=== PATIENT | female | born 1955 | race African-American/Black ===

== ENCOUNTER 2017-02-21 11:17 | Inpatient (IN) | payer OTHER ==
[2017-02-21 14:38] VITALS: BMI 33.0
--- NOTE | 2017-02-21 15:41 | HP ---
COWS - Scale Resting Pulse: 0= [place] 80 or Below Restless Observation: 3= Extraneous Movement Pupil Size: 2= Moderately Dilated Bone or Joint Aches: 2= Severe Diffuse Aches Runny Nose/ Eye Tearin= Runny Nose/Eyes GI Upset > 30mins: 3= Vomiting/Diarrhea Tremor Observation: 2= Slight Tremor Visible Yawning Observation: 2= >3x During Session Anxiety or Irritability: 2=Irritable/Anxious Goose Flesh Skin: 0=Smooth Skin Admission ROS BHS - HPI Chief Complaint: i need help to stop using heroin and street methadone Allergies/Adverse Reactions: Allergies Allergy/AdvReac Type Severity Reaction Status Date / Time No Known Allergies Allergy Verified 12/11/15 16:49 History of Present Illness: this 62 years old female with heroin and street methadone,withdrawal symptom, last detox [facility] 12/11/15 to 12/16/15 hepatitis c arthritis both knees anxiety and depression asthma vertigo low back pain herniated disc longest period of sobriety 20 years - Ebola screening Have you traveled outside of the country in the last 21 days: No Have you had contact with anyone from an Ebola affected area: No Have you been sick,other than usual withdrawal symptoms: No - Review of Systems Constitutional: Chills, Diaphoresis, Loss of Appetite, Malaise, Night Sweats, Changes in sleep, Weakness EENT: reports: Tearing, Nose Congestion Respiratory: reports: No Symptoms reported, Other (asthma) Cardiac: reports: Palpitations GI: reports: Diarrhea, Nausea, Vomiting, Abdominal cramping : reports: No Symptoms Reported Musculoskeletal: reports: Back Pain, Joint Pain, Muscle Pain, Joint Stiffness Integumentary: reports: Dryness Neuro: reports: Headache, Tremors Endocrine: reports: No Symptoms Reported Hematology: reports: No Symptoms Reported Psychiatric: reports: Anxious, Depressed Patient History - Patient Medical History Hx Anemia: No Hx Asthma: Yes (ON ALBUTEROL INHALER) Hx Chronic Obstructive Pulmonary Disease (COPD): No Hx Cancer: No Hx Cardiac Disorders: No Hx Congestive Heart Failure: No Hx Hypertension: No Hx Hypercholesterolemia: No Hx Pacemaker: No HX Cerebrovascular Accident: No Hx Seizures: No Hx Dementia: No Hx Diabetes: No Hx Gastrointestinal Disorders: No Hx Liver Disease: No Hx Genitourinary Disorders: No Hx Sexually Transmitted Disorders: No Hx Renal Disease (ESRD): No Hx Thyroid Disease: No Hx Human Immunodeficiency Virus (HIV): No (2013 NEGATIVE) Hx Hepatitis C: Yes Hx Depression: Yes Hx Suicide Attempt: No Hx Bipolar Disorder: No Hx Schizophrenia: No Other Medical History: no suicidal,no homicidal - Patient Surgical History Past Surgical History: Yes Hx Neurologic Surgery: No Hx Cataract Extraction: No Hx Cardiac Surgery: No Hx Lung Surgery: No Hx Breast Surgery: No Hx Breast Biopsy: No Hx Abdominal Surgery: No Hx Appendectomy: No Hx Cholecystectomy: No Hx Genitourinary Surgery: No Hx Section: No Hx Orthopedic Surgery: Yes (RIGHT SHOULDER ,RIGHT KNEE ARTHROSCOPIC) Anesthesia Reaction: No - PPD History Previous Implant?: Yes Documented Results: Negative w/o proof Date: 12/13/15 PPD to be Administered?: Yes - Reproductive History Patient is a Female of Child Bearing Age (11 -55 yrs old): No Patient : No - Smoking Cessation Smoking history: Never smoked Have you smoked in the past 12 months: No Hx Chewing Tobacco Use: No Initiated information on smoking cessation: No - Substance & Tx. History Hx Alcohol Use: No Hx Substance Use: Yes Substance Use Type: Heroin Hx Substance Use Treatment: Yes ([facility] 12/11/15 ) Family Disease History - Family Disease History Family Disease History: Other: Father (ALCOHOL,) Admission Physical Exam BHS - Vital Signs Vital Signs: Vital Signs - 24 hr 02/21/17 14:36 Temperature 97.0 F L Pulse Rate 66 Respiratory 16 Rate Blood Pressure 119/70 - Physical General Appearance: Yes: Moderate Distress, Tremorous, Irritable, Sweating, Anxious HEENTM: Yes: Within Normal Limits, Normal ENT Inspection, NONI, Pharynx Normal Respiratory: Yes: Lungs Clear, Normal Breath Sounds, No Respiratory Distress Neck: Yes: Within Normal Limits, Supple, Trachea in good position Breast: Yes: Breast Exam Deferred Cardiology: Yes: Within Normal Limits, Regular Rhythm, Regular Rate, S1, S2 Abdominal: Yes: Normal Bowel Sounds, Non Tender, Flat, Soft Genitourinary: Yes: Within Normal Limits Back: Yes: Within Normal Limits, Normal Inspection, Muscle Spasm Musculoskeletal: Yes: Back pain, Joint Stiffness, Muscle Pain Extremities: Yes: Within Normal Limits, Normal Range of Motion, Tremors Neurological: Yes: stereotype caster II-XII NML intact, Alert, Motor Strength 5/5 Integumentary: Yes: Dry Lymphatic: Yes: Within Normal Limits - Diagnostic (1) Arthritis Current Visit: No Status: Acute (2) Asthma Current Visit: No Status: Acute (3) Hepatitis C Current Visit: No Status: Acute (4) Opioid dependence with withdrawal Current Visit: No Status: Acute (5) Vertigo Current Visit: Yes Status: Acute (6) Anxiety and depression Current Visit: Yes Status: Acute Cleared for Admission [facility] - Detox or Rehab [facility] Level of Care: Medically Managed Detox Regimen/Protocol: Methadone [facility] Breath Alcohol Content Breath Alcohol Content: 0 Urine Pregancy Test - Result Urine Test Results: Negative- NO Line Present Urine Drug Screen - Results Drug Screen Negative: No Urine Drug Screen Results: OPI-Opiates, BZO-Benzodiazepines, MTD-Methadone, OXY- Oxycodone
[2017-02-21] MEDS ORDERED: ACETAMINOPHEN 325 MG TABLET (FP) PO PRN (15:59)
[2017-02-21] MEDS ORDERED: P-EPHED 60MG/TRIPROLIDI 2.5MG TABLET PO PRN (15:59)
[2017-02-21] MEDS ORDERED: MAGNESIUM CITRATE 300 ML BOTTLE PO PRN (15:59)
[2017-02-21] MEDS ORDERED: guaiFENesin/D-METHORPHAN HB 10 ML UNIT-DOSE CUPS PO PRN (15:59)
[2017-02-21] MEDS ORDERED: MAG HYDROX/AL HYDROX/SIMETH 30 ML UNIT-DOSE CUP PO PRN (15:59)
[2017-02-21] MEDS ORDERED: MAGNESIUM HYDROX 2400MG/30ML ORAL SUSPENSION 30 ML CUP PO PRN (15:59)
[2017-02-21] MEDS ORDERED: LOPERAMIDE HCL 2 MG CAPSULE PO PRN (15:59)
[2017-02-21] MEDS ORDERED: IBUPROFEN 400 MG TABLET (FP) PO PRN (15:59)
[2017-02-21] MEDS ORDERED: MENTHOL/PHENOL 1 EACH UD MM PRN (15:59)
[2017-02-21] MEDS ORDERED: METHADONE HCL 10 MG TABLET (FOR DETOX USE ONLY) PO ONE ×3 (15:59→23:00)
[2017-02-21] MEDS ORDERED: hydrOXYzine PAMOATE 25 MG CAPSULE (FP) PO PRN (15:59)
[2017-02-21] MEDS ORDERED: ALBUTEROL SO4 6.7 GM HFA INHALER IH PRN (16:05)
[2017-02-21] MEDS: diazePAM 5 MG TABLET PO PRN (18:45)
[2017-02-21] MEDS: THIAMINE HCL 100 MG TABLET (FP) PO SCH (22:59)
[2017-02-21 23:22] LABS: URINE APPEARANCE CLEAR; URINE BILIRUBIN NEGATIVE (NEGATIVE); URINE BLOOD NEGATIVE (NEGATIVE); URINE COLOR YELLOW; URINE GLUCOSE (UA) NEGATIVE (NEGATIVE); URINE KETONE NEGATIVE (NEGATIVE); URINE LEUK ESTERASE NEGATIVE (NEGATIVE); URINE NITRITE NEGATIVE (NEGATIVE); URINE PROTEIN NEGATIVE (NEGATIVE); URINE UROBILINOGEN NEGATIVE E.U./dl (0.2-1.0)
[2017-02-22] MEDS: diphenhydrAMINE HCL 50 MG CAPSULE PO PRN ×2 (02:38→22:51)
[2017-02-22] MEDS ORDERED: METHADONE HCL 10 MG TABLET (FOR DETOX USE ONLY) PO ONE (10:00)
[2017-02-22] MEDS: PRENATAL VITAMINS W/ FOLIC ACID TABLET (FP) PO SCH (10:10)
[2017-02-22] MEDS: MECLIZINE HCL 12.5 MG TABLET PO PRN ×2 (10:10→15:15)
[2017-02-22 11:07] LABS: MCH 30.1 pg (25.7-33.7); MEAN CELL VOLUME 91.2 fl (80-96); MEAN PLT VOLUME 8.3 fl (7.5-11.1); PLATELET COUNT 125 K/MM3 (134-434); RDW 14.4 % (11.6-15.6); WHITE BLOOD COUNT 2.4 K/mm3 (4.0-10.0)
[2017-02-22 11:08] LABS: ALBUMIN 3.1 g/dl (3.4-5.0); ANION GAP 7 (8-16); CALCIUM 8.4 mg/dL (8.5-10.1); CO2 31 mmol/L (21-32); COCKROFT - GAULT 142.7065; CREATININE 0.6 mg/dL (0.55-1.02); GLUCOSE,RANDOM 88 mg/dL (74-106); SGOT/AST 55 U/L (15-37); SGPT/ALT 38 U/L (12-78)
[2017-02-22 11:09] LABS: ALK PHOS 131 U/L (45-117); BILIRUBIN,TOTAL 0.4 mg/dL (0.2-1.0); TOT PROT 6.4 g/dl (6.4-8.2)
--- NOTE | 2017-02-22 13:13 | PN ---
BHS COWS - Scale Resting Pulse: 0= [place] 80 or Below Sweatin=Flushed/Facial Moisture Restless Observation: 3= Extraneous Movement Pupil Size: 1= Pupils >than Normal Bone or Joint Aches: 2= Severe Diffuse Aches Runny Nose/ Eye Tearin= Runny Nose/Eyes GI Upset > 30mins: 3= Vomiting/Diarrhea Tremor Observation of Outstretched Hands: 2= Slight Tremor Visible Yawning Observation: 1= 1-2x During Session Anxiety or Irritability: 2=Irritable/Anxious Goose Flesh Skin: 0=Smooth Skin COWS Score: 18 BHS Progress Note (SOAP) Subjective: ALERT,IRRITABLE,ANXIOUS,INTERRUPTED SLEEP,TREMOR,PAIN IN THE BODY AND BACK Objective: 02/22/17 13:11 Vital Signs Temperature 98.1 F 02/22/17 11:08 Pulse Rate 67 02/22/17 11:08 Respiratory Rate 16 02/22/17 11:08 Blood Pressure 132/77 02/22/17 11:08 O2 Sat by Pulse Oximetry (%) EKG NSR Laboratory Last Values WBC 2.4 K/mm3 (4.0-10.0) L D 02/22/17 07:40 RBC 4.19 M/mm3 (3.60-5.2) 02/22/17 07:40 Hgb 12.6 GM/dL (10.7-15.3) 02/22/17 07:40 Hct 38.2 % (32.4-45.2) 02/22/17 07:40 MCV 91.2 fl (80-96) 02/22/17 07:40 MCHC 33.0 g/dl (32.0-36.0) 02/22/17 07:40 RDW 14.4 % (11.6-15.6) 02/22/17 07:40 Plt Count 125 K/MM3 (134-434) L D 02/22/17 07:40 MPV 8.3 fl (7.5-11.1) 02/22/17 07:40 Sodium 142 mmol/L (136-145) 02/22/17 07:40 Potassium 4.0 mmol/L (3.5-5.1) 02/22/17 07:40 Chloride 104 mmol/L (98-107) 02/22/17 07:40 Carbon Dioxide 31 mmol/L (21-32) 02/22/17 07:40 Anion Gap 7 (8-16) L 02/22/17 07:40 BUN 10 mg/dL (7-18) 02/22/17 07:40 Creatinine 0.6 mg/dL (0.55-1.02) D 02/22/17 07:40 Creat Clearance w eGFR > 60 (>60) 02/22/17 07:40 Random Glucose 88 mg/dL (74-106) D 02/22/17 07:40 Calcium 8.4 mg/dL (8.5-10.1) L 02/22/17 07:40 Total Bilirubin 0.4 mg/dL (0.2-1.0) 02/22/17 07:40 AST 55 U/L (15-37) H D 02/22/17 07:40 ALT 38 U/L (12-78) 02/22/17 07:40 Alkaline Phosphatase 131 U/L (45-117) H 02/22/17 07:40 Total Protein 6.4 g/dl (6.4-8.2) 02/22/17 07:40 Albumin 3.1 g/dl (3.4-5.0) L 02/22/17 07:40 Urine Color Yellow 02/21/17 21:22 Urine Appearance Clear 02/21/17 21:22 Urine pH 5.0 (5.0-8.0) 02/21/17 21:22 Ur Specific [place] 1.026 (1.001-1.035) 02/21/17 21:22 Urine Protein Negative (NEGATIVE) 02/21/17 21:22 Urine Glucose (UA) Negative (NEGATIVE) 02/21/17 21:22 Urine Ketones Negative (NEGATIVE) 02/21/17 21:22 Urine Blood Negative (NEGATIVE) 02/21/17 21:22 Urine Nitrite Negative (NEGATIVE) 02/21/17 21:22 Urine Bilirubin Negative (NEGATIVE) 02/21/17 21:22 Urine Urobilinogen Negative E.U./dl (0.2-1.0) 02/21/17 21:22 Ur Leukocyte Esterase Negative (NEGATIVE) 02/21/17 21:22 LABS PENDING Assessment: 02/22/17 13:12 WITHDRAWAL SYMPTOM Plan: CONTINUE DETOX,
--- NOTE | 2017-02-22 14:29 | CONSULT ---
[facility] Psychiatric Consult - Data Date of interview: 02/22/17 Admission source: [facility] Identifying data: Readmission to [facility] for this 60 y/o AA female seeking detox treatment, on ,for heroin dependence.Patient is single without children,domiciled,unemployed and supported on [facility] benefits. Substance Abuse History: - Smoking Cessation. Smoking history: Never smoked. Have you smoked in the past 12 months: No. Hx Chewing Tobacco Use: No. Initiated information on smoking cessation: No. - Substance & Tx. History. Hx Alcohol Use: No. Hx Substance Use: Yes. Substance Use Type: Heroin. Hx Substance Use Treatment: Yes ([facility] 12/11/15 ). Confirmed by patient. Medical History: Hepatitis C,arthritis of both knees,low back pain (herniated disk) and a history of vertigo. Psychiatric History: Remote history of one psychiatric hospitalization for suicidal ideation (patient does not recall location).Diagnosed with MDD but, apparently,the patient has stopped taking medications months ago (used to be on abilify and paxil).Confirmed by review of pharmacy claims.No OPD care for more than a year.Ms Daniels denies history of suicide attempts. Physical/Sexual Abuse/Trauma History: No history reported. Mental Status Exam - Mental Status Exam Alert and Oriented to: Time, Place, Person Cognitive Function: Good Patient Appearance: Well Groomed (covered with tattoos : arms and forearms) Mood: Hopeful, Euthymic Affect: Appropriate, Normal Range Patient Behavior: Fatigued, Appropriate, Cooperative Speech Pattern: Clear, Appropriate Voice Loudness: Normal Thought Process: Goal Oriented Thought Disorder: Not Present Hallucinations: Denies Suicidal Ideation: Denies Homicidal Ideation: Denies Insight/Judgement: Fair Sleep: Fair Appetite: Good Muscle strength/Tone: Normal Gait/Station: Other (walks with a limp) Psychiatric Findings - Problem List ([place] 1, 2,3) (1) Opioid dependence with withdrawal Current Visit: Yes Status: Acute (2) Substance induced mood disorder Current Visit: Yes Status: Acute (3) Arthritis Current Visit: Yes Status: Chronic (4) Vertigo Current Visit: Yes Status: Acute (5) Asthma Current Visit: Yes Status: Chronic (6) Hepatitis C Current Visit: Yes Status: Chronic - Initial Treatment Plan Initial Treatment Plan: Previous records are reviewed.Detoxification in progress.Observation.
[2017-02-22] MEDS: THIAMINE HCL 100 MG TABLET (FP) PO SCH (22:49)
[2017-02-23] MEDS: diazePAM 5 MG TABLET PO PRN ×2 (08:27→19:33)
[2017-02-23] MEDS ORDERED: METHADONE HCL 5 MG TABLET (FOR DETOX USE ONLY) PO ONE (10:00)
[2017-02-23] MEDS: PRENATAL VITAMINS W/ FOLIC ACID TABLET (FP) PO SCH (10:33)
[2017-02-23] MEDS: LIDOCAINE 5% TOPICAL PATCH TP SCH (10:34)
[2017-02-23] MEDS: MECLIZINE HCL 12.5 MG TABLET PO PRN ×2 (10:35→22:14)
--- NOTE | 2017-02-23 14:10 | PN ---
BHS COWS - Scale Resting Pulse: 0= [place] 80 or Below Sweatin= Chills/Flushing Restless Observation: 3= Extraneous Movement Pupil Size: 1= Pupils >than Normal Bone or Joint Aches: 2= Severe Diffuse Aches Runny Nose/ Eye Tearin= Runny Nose/Eyes GI Upset > 30mins: 2= Nausea/Diarrhea Tremor Observation of Outstretched Hands: 2= Slight Tremor Visible Yawning Observation: 1= 1-2x During Session Anxiety or Irritability: 2=Irritable/Anxious Goose Flesh Skin: 0=Smooth Skin COWS Score: 16 S Progress Note (SOAP) Subjective: ALERT,IRRITABLE,ANXIOUS,INTERRUPTED SLEEP,PAIN IN THE BODY AND BACK,PAIN IN BOTH KNEES Objective: 02/23/17 14:07 Vital Signs Temperature 98.1 F 02/23/17 10:26 Pulse Rate 68 02/23/17 10:26 Respiratory Rate 16 02/23/17 10:26 Blood Pressure 121/75 02/23/17 10:26 O2 Sat by Pulse Oximetry (%) 02/23/17 14:08 Laboratory Last Values WBC 2.4 K/mm3 (4.0-10.0) L D 02/22/17 07:40 RBC 4.19 M/mm3 (3.60-5.2) 02/22/17 07:40 Hgb 12.6 GM/dL (10.7-15.3) 02/22/17 07:40 Hct 38.2 % (32.4-45.2) 02/22/17 07:40 MCV 91.2 fl (80-96) 02/22/17 07:40 MCHC 33.0 g/dl (32.0-36.0) 02/22/17 07:40 RDW 14.4 % (11.6-15.6) 02/22/17 07:40 Plt Count 125 K/MM3 (134-434) L D 02/22/17 07:40 MPV 8.3 fl (7.5-11.1) 02/22/17 07:40 Sodium 142 mmol/L (136-145) 02/22/17 07:40 Potassium 4.0 mmol/L (3.5-5.1) 02/22/17 07:40 Chloride 104 mmol/L (98-107) 02/22/17 07:40 Carbon Dioxide 31 mmol/L (21-32) 02/22/17 07:40 Anion Gap 7 (8-16) L 02/22/17 07:40 BUN 10 mg/dL (7-18) 02/22/17 07:40 Creatinine 0.6 mg/dL (0.55-1.02) D 02/22/17 07:40 Creat Clearance w eGFR > 60 (>60) 02/22/17 07:40 Random Glucose 88 mg/dL (74-106) D 02/22/17 07:40 Calcium 8.4 mg/dL (8.5-10.1) L 02/22/17 07:40 Total Bilirubin 0.4 mg/dL (0.2-1.0) 02/22/17 07:40 AST 55 U/L (15-37) H D 02/22/17 07:40 ALT 38 U/L (12-78) 02/22/17 07:40 Alkaline Phosphatase 131 U/L (45-117) H 02/22/17 07:40 Total Protein 6.4 g/dl (6.4-8.2) 02/22/17 07:40 Albumin 3.1 g/dl (3.4-5.0) L 02/22/17 07:40 Urine Color Yellow 02/21/17 21:22 Urine Appearance Clear 02/21/17 21:22 Urine pH 5.0 (5.0-8.0) 02/21/17 21:22 Ur Specific [place] 1.026 (1.001-1.035) 02/21/17 21:22 Urine Protein Negative (NEGATIVE) 02/21/17 21:22 Urine Glucose (UA) Negative (NEGATIVE) 02/21/17 21:22 Urine Ketones Negative (NEGATIVE) 02/21/17 21:22 Urine Blood Negative (NEGATIVE) 02/21/17 21:22 Urine Nitrite Negative (NEGATIVE) 02/21/17 21:22 Urine Bilirubin Negative (NEGATIVE) 02/21/17 21:22 Urine Urobilinogen Negative E.U./dl (0.2-1.0) 02/21/17 21:22 Ur Leukocyte Esterase Negative (NEGATIVE) 02/21/17 21:22 RPR Titer Nonreactive (NONREACTIVE) 02/22/17 07:40 Assessment: 02/23/17 14:09 WITHDRAWAL SYMPTOM Plan: CONTINUE DETOX,LIDODERM PATCH BOTH KNEES
[2017-02-23] MEDS: THIAMINE HCL 100 MG TABLET (FP) PO SCH (22:13)
--- NOTE | 2017-02-24 00:14 | EKG ---
Test Reason : Blood Pressure : / mmHG Vent. Rate : 063 BPM Atrial Rate : 063 BPM P-R Int : 188 ms QRS Dur : 090 ms QT Int : 438 ms P-R-T Axes : 062 -24 036 degrees QTc Int : 448 ms NORMAL SINUS RHYTHM POSSIBLE LEFT ATRIAL ENLARGEMENT BORDERLINE ECG NO PREVIOUS ECGS AVAILABLE Confirmed by MESHA GALLARDO, DENAE ([id number]) on 02/24/2017 12:14:19 AM Referred By: Confirmed By:DENAE ZIMMER MD
[2017-02-24] MEDS: diazePAM 5 MG TABLET PO PRN ×2 (05:43→15:02)
[2017-02-24] MEDS ORDERED: METHADONE HCL 5 MG TABLET (FOR DETOX USE ONLY) PO ONE (10:00)
--- NOTE | 2017-02-24 10:19 | PN ---
BHS Progress Note (SOAP) Subjective: sweats agitation anxiety irritable interrupted sleep Objective: 02/24/17 10:18 Vital Signs Temperature 97.7 F 02/24/17 06:00 Pulse Rate 61 02/24/17 06:00 Respiratory Rate 18 02/24/17 06:00 Blood Pressure 132/89 02/24/17 06:00 O2 Sat by Pulse Oximetry (%) Laboratory Tests 02/21/17 02/22/17 02/22/17 21:22 07:40 07:40 WBC 2.4 L D RBC 4.19 Hgb 12.6 Hct 38.2 MCV 91.2 MCHC 33.0 RDW 14.4 Plt Count 125 L D MPV 8.3 Sodium 142 Potassium 4.0 Chloride 104 Carbon Dioxide 31 Anion Gap 7 L BUN 10 Creatinine 0.6 D Creat Clearance w eGFR > 60 Random Glucose 88 D Calcium 8.4 L Total Bilirubin 0.4 AST 55 H D ALT 38 Alkaline Phosphatase 131 H Total Protein 6.4 Albumin 3.1 L Urine Color Yellow Urine Appearance Clear Urine pH 5.0 Ur Specific [place] 1.026 Urine Protein Negative Urine Glucose (UA) Negative Urine Ketones Negative Urine Blood Negative Urine Nitrite Negative Urine Bilirubin Negative Urine Urobilinogen Negative Ur Leukocyte Esterase Negative RPR Titer 02/22/17 07:40 WBC RBC Hgb Hct MCV MCHC RDW Plt Count MPV Sodium Potassium Chloride Carbon Dioxide Anion Gap BUN Creatinine Creat Clearance w eGFR Random Glucose Calcium Total Bilirubin AST ALT Alkaline Phosphatase Total Protein Albumin Urine Color Urine Appearance Urine pH Ur Specific [place] Urine Protein Urine Glucose (UA) Urine Ketones Urine Blood Urine Nitrite Urine Bilirubin Urine Urobilinogen Ur Leukocyte Esterase RPR Titer Nonreactive awake/alert ambulating no acute distress Assessment: 02/24/17 10:19 withdrawal sx Plan: continue detox increase fluids
[2017-02-24] MEDS: PRENATAL VITAMINS W/ FOLIC ACID TABLET (FP) PO SCH (10:38)
[2017-02-24] MEDS: LIDOCAINE 5% TOPICAL PATCH TP SCH (10:39)
[2017-02-24] MEDS ORDERED: PARoxetine HCL 10 MG TABLET (FP) PO SCH (14:15)
--- NOTE | 2017-02-24 14:44 | PN ---
[id number]. Patient has endorsed criteria for depression. Used to be on paxil and abilify. Wants to get back on paroxetine. Met with Ms Daniels this morning.Good historian. She recalls good response to paroxetine in terms of improvement of energy level,mood,appetite and sleep. Patient states that the medication was well tolerated. Review of pharmacy claims indicates dose of 25 mg/day. Intervention : Psychoeducation provided. Signs/symptoms,treatment of MDD are discussed with patient. Will resume paxil in view of report of history of favorable response. Side effects/benefits reviewed with the patient. Made aware of potential for sexual dysfunction/suicidal ideation. Patient admits to good tolerability to the drug.No prior history of adverse events. Paxil 10 mg po daily.Ordered.Patient agrees with this plan of care.
[2017-02-24] MEDS: MECLIZINE HCL 12.5 MG TABLET PO PRN (17:26)
[2017-02-24] MEDS: diphenhydrAMINE HCL 50 MG CAPSULE PO PRN (22:15)
[2017-02-24] MEDS: THIAMINE HCL 100 MG TABLET (FP) PO SCH (22:15)
[2017-02-25] MEDS: MECLIZINE HCL 12.5 MG TABLET PO PRN ×3 (04:31→22:10)
[2017-02-25] MEDS ORDERED: PARoxetine HCL 10 MG TABLET (FP) PO SCH (10:00)
[2017-02-25] MEDS ORDERED: METHADONE HCL 10 MG TABLET (FOR DETOX USE ONLY) PO ONE (10:00)
[2017-02-25] MEDS: PRENATAL VITAMINS W/ FOLIC ACID TABLET (FP) PO SCH (10:24)
[2017-02-25] MEDS: LIDOCAINE 5% TOPICAL PATCH TP SCH (10:25)
--- NOTE | 2017-02-25 11:20 | PN ---
BHS Progress Note (SOAP) Subjective: interrupted sleep, vertigo Objective: 02/25/17 11:18 Vital Signs Temp 97.9 F 02/25/17 09:53 Pulse 66 02/25/17 09:53 Resp 18 02/25/17 09:53 BP 131/79 02/25/17 09:53 Pulse Ox Laboratory Tests 02/21/17 02/22/17 02/22/17 21:22 07:40 07:40 WBC 2.4 L D RBC 4.19 Hgb 12.6 Hct 38.2 MCV 91.2 MCHC 33.0 RDW 14.4 Plt Count 125 L D MPV 8.3 Sodium 142 Potassium 4.0 Chloride 104 Carbon Dioxide 31 Anion Gap 7 L BUN 10 Creatinine 0.6 D Creat Clearance w eGFR > 60 Random Glucose 88 D Calcium 8.4 L Total Bilirubin 0.4 AST 55 H D ALT 38 Alkaline Phosphatase 131 H Total Protein 6.4 Albumin 3.1 L Urine Color Yellow Urine Appearance Clear Urine pH 5.0 Ur Specific [place] 1.026 Urine Protein Negative Urine Glucose (UA) Negative Urine Ketones Negative Urine Blood Negative Urine Nitrite Negative Urine Bilirubin Negative Urine Urobilinogen Negative Ur Leukocyte Esterase Negative RPR Titer 02/22/17 07:40 WBC RBC Hgb Hct MCV MCHC RDW Plt Count MPV Sodium Potassium Chloride Carbon Dioxide Anion Gap BUN Creatinine Creat Clearance w eGFR Random Glucose Calcium Total Bilirubin AST ALT Alkaline Phosphatase Total Protein Albumin Urine Color Urine Appearance Urine pH Ur Specific [place] Urine Protein Urine Glucose (UA) Urine Ketones Urine Blood Urine Nitrite Urine Bilirubin Urine Urobilinogen Ur Leukocyte Esterase RPR Titer Nonreactive pt aox3 in nad , no nystagmus Assessment: 02/25/17 11:19 withdrawal sx's h/o vertigo Plan: cont. detox increase fluids d/c in am meclizine
[2017-02-25] MEDS: diphenhydrAMINE HCL 50 MG CAPSULE PO PRN (22:09)
[2017-02-25] MEDS: THIAMINE HCL 100 MG TABLET (FP) PO SCH (22:09)
[2017-02-26] MEDS ORDERED: METHADONE HCL 5 MG TABLET (FOR DETOX USE ONLY) PO ONE (06:00)
--- NOTE | 2017-02-26 08:41 | DS ---
[facility] Detox Discharge Summary Admission Date: 02/21/17 Discharge Date: 02/26/17 - History Present History: Opioid Dependence - Physical Exam Results Vital Signs: Vital Signs Temperature 97.7 F 02/26/17 06:52 Pulse Rate 56 L 02/26/17 06:52 Respiratory Rate 18 02/26/17 06:52 Blood Pressure 144/85 02/26/17 06:52 O2 Sat by Pulse Oximetry (%) - Treatment Hospital Course: Detox Protocol Followed, Detoxed Safely, Responded well, Discharged Condition Good, Rehab Referral Accepted - Medication Discharge Medications: Ambulatory Orders NK [No Known Home Medication] 12/11/15 - Diagnosis (1) Anxiety and depression Current Visit: Yes Status: Acute (2) Opioid dependence with withdrawal Current Visit: Yes Status: Chronic (3) Substance induced mood disorder Current Visit: Yes Status: Acute (4) Vertigo Current Visit: Yes Status: Resolved (5) Arthritis Current Visit: Yes Status: Chronic (6) Asthma Current Visit: Yes Status: Chronic Qualifiers: Asthma severity: mild intermittent Asthma complication type: uncomplicated Qualified Code(s): J45.20 - Mild intermittent asthma, uncomplicated (7) Hepatitis C Current Visit: Yes Status: Chronic Qualifiers: Viral hepatitis chronicity: chronic Hepatic coma status: without hepatic coma Qualified Code(s): B18.2 - Chronic viral hepatitis C - AMA Did Patient Leave Against Medical Advice: No
[2017-02-26 09:55] VITALS: BP 129/79; PULSE 68; TEMP 98.2
== END 2017-02-26 09:47 | disposition home or self-care (01) | DRG 744 ==
LOC: YASAS 11:17 → Y6N 16:08
PROVIDERS: ADMIT Internal Medicine; ATTEND Internal Medicine Addiction Medicine
PROC: HZ2ZZZZ Detoxification Services for Substance Abuse Treatment (ICD-10-PCS; principal; 2017-02-21)
DX: F11.23 Opioid dependence with withdrawal (principal); B18.2 Chronic viral hepatitis C; F19.24 Other psychoactive substance dependence with psychoactive substance-induced mood disorder; F41.8 Other specified anxiety disorders; J45.20 Mild intermittent asthma, uncomplicated; M13.862 Other specified arthritis, left knee; M13.861 Other specified arthritis, right knee; M54.5 Low back pain; Z86.69 Personal history of other diseases of the nervous system and sense organs
CPT/HCPCS: 36415; 80053; 81003; 85027; 86593; 93005; 93010